=== PATIENT | female | born 1955 | race Asian ===

== ENCOUNTER 2016-08-27 12:47 | Emergency (ER) | payer MEDICAID, OTHER ==
[2016-08-27] MEDS ORDERED: BENZONATATE 100 MG CAPSULE PO STA (14:11)
[2016-08-27] MEDS ORDERED: IBUPROFEN 600 MG TABLET PO STA (14:11)
[2016-08-27] MEDS ORDERED: IBUPROFEN 600 MG TABLET PO ONE (14:15)
[2016-08-27] MEDS ORDERED: BENZONATATE 100 MG CAPSULE PO ONE (14:15)
== END 2016-08-27 16:01 | disposition home or self-care (01) ==
DX: J84.9 Interstitial pulmonary disease, unspecified (principal); R50.9 Fever, unspecified; R09.89 Other specified symptoms and signs involving the circulatory and respiratory systems; R09.81 Nasal congestion
CPT/HCPCS: 71020; 87275; 87276; 99283; 99284; A9270

== ENCOUNTER 2018-06-17 14:23 | Emergency (ER) | payer OTHER, MEDICAID ==
[2018-06-17 16:41] LABS: BASOPHILS % (AUTO) 0.2 %; EOSINOPHILS % (AUTO) 0.4 %; HGB - HEMOGLOBIN 11.6 g/dL (12.0-16.0); LYMPHOCYTES # (AUTO) 3.1 10^3/uL (1.5-3.5); LYMPHOCYTES % (AUTO) 33.2 %; MEAN CORPUSCULAR HEMOGLOBIN 36.2 pg (27.0-31.0); MEAN CORPUSCULAR HGB CONC 33.7 g/dL (32.0-36.0); MEAN CORPUSCULAR VOLUME 107.4 fL (81.0-99.0); MEAN PLATELET VOLUME 7.5 fL (7.9-10.8); MONOCYTES # (AUTO) 0.7 10^3/uL (0.0-1.0); MONOCYTES % (AUTO) 7.2 %; NEUTROPHILS # (AUTO) 5.5 10^3/uL (1.5-6.6); PLT - PLATELET COUNT 115 10^3/uL (130-450); RED BLOOD COUNT 3.21 10^6/uL (4.20-5.40); RED CELL DISTRIBUTION WIDTH 13.4 % (12.0-15.0); WHITE BLOOD COUNT 9.3 x10^3/uL (4.8-10.8)
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
[2018-06-17 16:55] LABS: BILIRUBIN,URINE NEGATIVE (NEGATIVE); GLUCOSE, URINE (UA) 500 mg/dL (NEGATIVE); KETONES,URINE (UA) NEGATIVE (NEGATIVE); LEUKOCYTE ESTERASE, URINE NEGATIVE (NEGATIVE); NITRITE,URINE NEGATIVE (NEGATIVE); OCCULT BLOOD,URINE LARGE (NEGATIVE); PH,URINE 5.5 PH (5.0-7.5); PROTEIN,URINE 100 mg/dL (NEGATIVE); UROBILINOGEN,URINE 0.2 (NORMAL) E.U./dL (NORMAL)
[2018-06-17 16:56] LABS: ALBUMIN 3.4 g/dL (3.2-5.5); ALBUMIN/GLOBULIN RATIO 0.8 (1.0-2.2); BILIRUBIN,TOTAL 1.1 mg/dL (0.2-1.0); CALCIUM 8.8 mg/dL (8.5-10.3); CREATININE 0.9 mg/dL (0.4-1.0); TOTAL PROTEIN 7.9 g/dL (6.7-8.2)
[2018-06-17 17:03] LABS: CLARITY,URINE CLEAR (CLEAR)
[2018-06-17 17:06] LABS: BACTERIA,URINE None Seen /HPF (None Seen); RBC,URINE TNTC /HPF (0-5); SQUAMOUS EPITHELIAL CELL,UR RARE Squamous (<= Few)
--- NOTE | 2018-06-17 17:30 | XRAY Report ---
Reason: CP Procedure Date: 06/17/2018 Accession Number: [id number] / [id number] Procedure: XR - Chest 2 View X-Ray CPT Code: 89031 FULL RESULT: EXAM: CHEST RADIOGRAPHY EXAM DATE: 06/17/2018 05:00 PM. CLINICAL HISTORY: Chest pain COMPARISON: CHEST 2 VIEW PA/LAT 08/27/2016 2:54 PM. TECHNIQUE: 2 views. FINDINGS: Lungs/Pleura: There is pulmonary venous congestion without overt edema. No confluent lung consolidation. No pleural effusion or pneumothorax. Mediastinum: Heart and mediastinal contours are unremarkable. Other: None. IMPRESSION: No acute cardiopulmonary abnormality. RADIA
[2018-06-17 18:05] VITALS: BP 143/83
== END 2018-06-17 18:05 | disposition home or self-care (01) ==
LOC: ED 14:23
DX: R05 Cough (principal); R53.1 Weakness; R68.83 Chills (without fever); R74.8 Abnormal levels of other serum enzymes; R73.9 Hyperglycemia, unspecified; J45.909 Unspecified asthma, uncomplicated
CPT/HCPCS: 36415; 71046; 80053; 81001; 81003; 83690; 84484; 85025; 87086; 93005; 99283

== ENCOUNTER 2021-12-18 18:06 | Outpatient (CLI) | payer OTHER, MEDICARE | END 2021-12-18 23:59 | disposition left against medical advice (07) | LOC: EMS 18:06 | DX: M54.2 Cervicalgia (principal); V43.52XA Car driver injured in collision with other type car in traffic accident, initial encounter; Y92.414 Local residential or business street as the place of occurrence of the external cause ==